=== PATIENT | female | born 1990 | race Caucasian/White ===

== ENCOUNTER 2019-12-27 07:30 | Inpatient (IN) | payer BC ==
[~2019-12-27] VITALS: Ht 154.9 cm; Wt 83.5 kg
[2019-12-28] MEDS ORDERED: LR 1,000 ML IV SCH ×2 (05:37→11:55)
[2019-12-28] MEDS ORDERED: CEFAZOLIN 2 GM IVPB PREMIX 50 ML IV ONE (05:45)
[2019-12-28 06:25] LABS: BASOPHILS % (AUTO) 0.2 % (0.0-2.0); EOSINOPHILS % (AUTO) 0.6 % (0.0-4.0); HEMATOCRIT 27.9 % (36-48); HEMOGLOBIN 9.3 g/dL (12.0-16.0); LYMPHOCYTES % (AUTO) 27.3 % (20.5-51.5); MEAN CORPUSCULAR HEMOGLOBIN 26 pg (27-31); MEAN CORPUSCULAR HGB CONC 33 % (32-36); MEAN CORPUSCULAR VOLUME 76 fL (79.0-98.0); MONOCYTES # (AUTO) 0.4 K/uL (0.0-1.0); MONOCYTES % (AUTO) 5.8 % (1.7-9.3); NEUTROPHILS % (AUTO) 66.1 % (40.0-70.0); PLATELET COUNT (AUTO) 188 K/uL (130-430); RED BLOOD CELL COUNT(AUTO) 3.65 MIL/uL (4.2-6.2); RED CELL DISTRIBUTION WIDTH 15.2 % (9.0-15.0); WHITE BLOOD COUNT (AUTO) 7.5 K/uL (4.8-10.8)
[2019-12-28 06:28] LABS: BILIRUBIN,URINE NEGATIVE (NEGATIVE); CLARITY/URINE TURBID (CLEAR); COLOR,URINE YELLOW (YELLOW); GLUCOSE,URINE NEGATIVE (NEGATIVE); KETONES,URINE NEGATIVE (NEGATIVE); LEUKOCYTE ESTERASE ,URINE 2+ (NEGATIVE); NITRITE, URINE NEGATIVE (NEGATIVE); PROTEIN URINE TRACE (NEGATIVE)
[2019-12-28 06:30] LABS: BLOOD, URINE TRACE (NEGATIVE)
[2019-12-28 07:13] LABS: WBC,URINE 20-50 /HPF (0-3)
[2019-12-28 07:14] LABS: BACTERIA,URINE MANY /HPF (None Seen); MUCUS,URINE 2+ /LPF (None Seen)
[2019-12-28 07:17] VITALS: BP_SYST 129
[2019-12-28] MEDS ORDERED: FLU VACC QS2019-20 36MOS UP/PF 60 MCG/0.5 ML SYRINGE I.M. PRN (07:20)
[2019-12-28 09:17] VITALS: BP_SYST 120
[2019-12-28] MEDS ORDERED: ONDANSETRON HCL 4 MG/2 ML VIAL ONE (09:22)
[2019-12-28] MEDS ORDERED: OXYTOCIN/0.9 % SODIUM CHLORIDE 20 UNITS/1,000 ML BAG IV ONE (09:22)
[2019-12-28] MEDS ORDERED: LR 1,000 ML IV.SOLN IV ONE (09:22)
[2019-12-28] MEDS ORDERED: KETOROLAC TROMETHAMINE 30 MG VIAL ONE (09:22)
[2019-12-28] MEDS ORDERED: BUPIVACAINE /DEX PF 0.75% SPINAL 2 ML AMP INJ ONE (09:22)
[2019-12-28] MEDS ORDERED: NS IRRIG SOLN 1000 ML IR ONE (09:22)
[2019-12-28] MEDS ORDERED: MORPHINE SULFATE 10MG/10ML PF AMP ONE (09:22)
[2019-12-28] MEDS ORDERED: METOCLOPRAMIDE HCL 10 MG/2 ML VIAL ONE (09:22)
[2019-12-28] MEDS ORDERED: KETOROLAC TROMETHAMINE 60 MG/2 ML VIAL IM PRN (09:30)
[2019-12-28] MEDS ORDERED: NALOXONE HCL 0.4 MG/ML AMP (NARCAN) IVP PRN ×2 (09:30)
[2019-12-28] MEDS ORDERED: MORPHINE SULFATE 10MG/10ML PF AMP SP SCH (09:30)
[2019-12-28] MEDS ORDERED: NALBUPHINE HCL 10 MG/ML AMP IVP PRN (09:30)
[2019-12-28] MEDS ORDERED: ONDANSETRON HCL 4 MG/2 ML VIAL IVP PRN (09:30)
[2019-12-28] MEDS ORDERED: fentaNYL CITRATE/PF 100 MCG/2 ML AMP IVP PRN ×2 (09:30)
[2019-12-28] MEDS ORDERED: OXYTOCIN/0.9 % SODIUM CHLORIDE 1,000 ML IV ONE ×2 (10:10→11:55)
[2019-12-28] MEDS: DIPHENHYDRAMINE INJ 50 MG/ML VIAL IVP PRN (11:14)
[2019-12-28] MEDS ORDERED: BISACODYL 10 MG/SUPPOSITORY RC PRN (12:00)
[2019-12-28] MEDS ORDERED: ANUSOL 1 EA SUPP.RECT (PREPARATION H) RC PRN (12:00)
[2019-12-28] MEDS ORDERED: RHO(D) IMMUNE GLOBULIN/MALTOSE 1500 UNITS/1.3 ML (WINHRO) IM PRN (12:00)
[2019-12-28] MEDS ORDERED: DOCUSATE SODIUM 100 MG CAPSULE PO PRN (12:00)
[2019-12-28] MEDS ORDERED: DIPH-TET-PERTUS Vaccine 0.5 ML VIAL (ADACEL) I.M. PRN (12:00)
[2019-12-28] MEDS ORDERED: HYDROcodone/ACETAMIN 5-325 MG TAB (NORCO/ VICODIN) PO PRN (12:00)
[2019-12-28] MEDS ORDERED: MEASLES,MUMPS&RUBELLA VACC/PF 12500 UNIT/0.5 ML VIAL SUBQ PRN (12:00)
[2019-12-28] MEDS ORDERED: SENNOSIDES/DOCUSATE SODIUM 1 TAB TABLET(SENOKOT-S) PO PRN (12:00)
[2019-12-28] MEDS ORDERED: OXYCODONE/ACETAMINOPHEN 5-325 TABLET PO PRN (12:00)
[2019-12-28] MEDS ORDERED: LANOLIN 7 GM OINT. TP PRN (12:00)
[2019-12-28] MEDS ORDERED: SIMETHICONE 80 MG TAB.CHEW PO PRN (12:00)
[2019-12-28] MEDS: CEFAZOLIN 1 GM IVPB PREMIX 50 ML IV SCH (18:00)
[2019-12-28] MEDS: KETOROLAC TROMETHAMINE 30 MG VIAL IVP SCH (18:00)
[2019-12-28] MEDS ORDERED: TEMAZEPAM 15 MG CAPSULE PO PRN (21:00)
[2019-12-29] MEDS: CEFAZOLIN 1 GM IVPB PREMIX 50 ML IV SCH ×2 (00:03→05:59)
[2019-12-29] MEDS: KETOROLAC TROMETHAMINE 30 MG VIAL IVP SCH ×2 (00:08→05:58)
[2019-12-29] MEDS ORDERED: OXYTOCIN/0.9 % SODIUM CHLORIDE 1,000 ML IV ONE (02:34)
[2019-12-29] MEDS: DIPHENHYDRAMINE INJ 50 MG/ML VIAL IVP PRN (02:38)
[2019-12-29 06:42] LABS: BASOPHILS % (AUTO) 0.5 % (0.0-2.0); EOSINOPHILS % (AUTO) 0.5 % (0.0-4.0); HEMATOCRIT 26.1 % (36-48); HEMOGLOBIN 8.6 g/dL (12.0-16.0); LYMPHOCYTES # (AUTO) 1.7 K/uL (1.0-5.5); LYMPHOCYTES % (AUTO) 18.2 % (20.5-51.5); MEAN CORPUSCULAR HEMOGLOBIN 26 pg (27-31); MEAN CORPUSCULAR HGB CONC 33 % (32-36); MONOCYTES # (AUTO) 0.5 K/uL (0.0-1.0); MONOCYTES % (AUTO) 5.3 % (1.7-9.3); NEUTROPHILS # (AUTO) 7.1 K/uL (1.8-7.7); NEUTROPHILS % (AUTO) 75.5 % (40.0-70.0); PLATELET COUNT (AUTO) 183 K/uL (130-430); RED BLOOD CELL COUNT(AUTO) 3.35 MIL/uL (4.2-6.2); RED CELL DISTRIBUTION WIDTH 15.3 % (9.0-15.0)
[2019-12-29 07:31] LABS: MEAN CORPUSCULAR VOLUME 78 fL (79.0-98.0); WHITE BLOOD COUNT (AUTO) 9.4 K/uL (4.8-10.8)
[2019-12-29] MEDS: OXYCODONE/ACETAMINOPHEN 5-325 TABLET PO PRN (17:55)
[2019-12-29] MEDS: IBUPROFEN 600 MG TABLET PO SCH (17:55)
[2019-12-30] MEDS: IBUPROFEN 600 MG TABLET PO SCH ×3 (00:11→11:58)
[2019-12-30] MEDS: OXYCODONE/ACETAMINOPHEN 5-325 TABLET PO PRN (10:55)
[2029-12-27] MEDS ORDERED: CEFAZOLIN 2 GM IVPB PREMIX 50 ML IV ONE (09:22)
== END 2019-12-30 14:45 | disposition home or self-care (01) | DRG 788 ==
LOC: SPU 12-28 05:30
PROVIDERS: ADMIT Specialist; ATTEND Specialist
PROC: 10D00Z1 Extraction of Products of Conception, Low, Open Approach (ICD-10-PCS; principal; 2019-12-28 07:30)
DX: O34.211 Maternal care for low transverse scar from previous cesarean delivery (principal); Z3A.38 38 weeks gestation of pregnancy; Z37.0 Single live birth; O69.2XX0 Labor and delivery complicated by other cord entanglement, with compression, not applicable or unspecified
CPT/HCPCS: 36415; 81000-TC; 85025; 86592; 86886; 86900; 86901; 87086; 94760; J0690; J1200; J1885; J2274; J2405; J2590; J2765; J3490; J7120